=== PATIENT | male | born 1980 | race Caucasian/White ===

== ENCOUNTER 2016-08-28 15:32 | Emergency (ER) | payer MEDICAID ==
[~2016-08-28] VITALS: Ht 175.3 cm; Wt 90.7 kg
[2016-08-28 15:37] VITALS: BP 145/101
--- NOTE | 2016-08-28 15:40 | NUR ---
36/M BIB SELF C/O SOB X 1 WK; HX OF ASTHMA. DENIES N/V/D; SKIN IS PINK/WARM/DRY; AAOX4 WITH EVEN AND STEADY GAIT; LUNGS CLEAR BL; HR EVEN AND REGULAR; PT DENIES ANY FEVER, CP, OR COUGH AT THIS TIME; PATIENT STATES PAIN OF 0/10 AT THIS TIME; VSS; PATIENT POSITIONED FOR COMFORT; HOB ELEVATED; BEDRAILS UP X2; BED DOWN. ER MD MADE AWARE OF PT STATUS.
[2016-08-28] MEDS ORDERED: ALBUTEROL 0.083% 2.5 MG/3 ML NEBU INH ONE ×2 (15:45→16:55)
[2016-08-28] MEDS ORDERED: IPRATROPIUM 0.02% 0.5 MG/2.5 ML NEBU INH ONE ×2 (15:45→16:55)
[2016-08-28] MEDS ORDERED: methylPREDNISolone SS 125 MG/2 ML VIAL IVP ONE (15:45)
[2016-08-28] MEDS ORDERED: MAG SULF 2000 MG/WATER PREMIX 50 ML IV ONE (15:45)
--- NOTE | 2016-08-28 15:55 | NUR ---
ADMITING DX: SOB HX: ASTHMA LOC AWAKE AND ALERT RESPONSIVE TO INFORMATION RESOURCE CONSULTANT VERBAL COMMANDS SKIN TONE PINK SUPPLEMENTAL OXYGEN USE AT 2 LPM VIA NC EDUCATION PROVIDED WITH ACKNOWLEDGEMENT ON HHN THERAPY AND RESPIRATORY DRUGS ENCOURAGED DEEP BREATHING DURING THERAPY TOLERATED WELL WITHOUT INCIDENT POST THERAPY PLACED BACK ON SUPPLEMENTAL OXYGEN AT 2 LPM VIA NC
[2016-08-28 17:48] VITALS: BP 138/78
--- NOTE | 2016-08-28 17:49 | NUR ---
Patient discharged with v/s stable. Written and verbal after care instructions given and explained. Patient alert, oriented and verbalized understanding of instructions. Ambulatory with steady gait. All questions addressed prior to discharge. ID band removed. Patient advised to follow up with PMD. Rx of Z PACK, ALBUTEROL INHALER, AND PREDNISONE given. Patient educated on indication of medication including possible reaction and side effects. Opportunity to ask questions provided and answered.
== END 2016-08-28 17:49 | disposition home or self-care (01) ==
LOC: MED 15:32
DX: J20.9 Acute bronchitis, unspecified (principal); J45.901 Unspecified asthma with (acute) exacerbation; F17.200 Nicotine dependence, unspecified, uncomplicated
CPT/HCPCS: 94640; 96365; 96366; 96375; 99285; J2930; J3475; J7613; J7644